=== PATIENT | female | born 1965 | race African-American/Black ===

== ENCOUNTER 2023-04-22 15:52 | Emergency (ER) | payer OTHER ==
[2023-04-22 16:02] VITALS: BP 143/80; PULSE 102; RESP 17; TEMP 98.2; BMI 25.0
[2023-04-22] MEDS ORDERED: DIPHTH,PERTUSS(ACELL),TET 0.5 ML DISP.SYRIN IM ONE (17:12)
== END 2023-04-22 19:02 | disposition left against medical advice (07) ==
LOC: JERFT 15:52
DX: S41.111A Laceration without foreign body of right upper arm, initial encounter (principal); S41.112A Laceration without foreign body of left upper arm, initial encounter; S50.812A Abrasion of left forearm, initial encounter; S50.811A Abrasion of right forearm, initial encounter; Y04.8XXA Assault by other bodily force, initial encounter
CPT/HCPCS: 99282-25

== ENCOUNTER 2023-05-19 08:42 | Inpatient (IN) | payer OTHER ==
[2023-05-19 09:19] VITALS: BMI 22.6
[2023-05-19] MEDS ORDERED: POLYETHYLENE GLYCOL (HEALTHYLAX) 3350 17 GM PACKET PO PRN (09:46)
[2023-05-19] MEDS ORDERED: BENZOCAINE/MENTHOL (CHLORASEPTIC ) LOZENGE MM PRN (09:46)
[2023-05-19] MEDS ORDERED: METHOCARBAMOL 500 MG TABLET PO PRN (09:46)
[2023-05-19] MEDS ORDERED: guaiFENesin 600 MG TABLET.ER (FP) PO PRN (09:46)
[2023-05-19] MEDS ORDERED: chlordiazePOXIDE HCL 25 MG CAPSULE PO PRN (09:46)
[2023-05-19] MEDS ORDERED: NALOXONE HCL 0.4 MG/ML VIAL IM PRN (09:46)
[2023-05-19] MEDS ORDERED: BENZONATATE 200 MG CAPSULE PO PRN (09:46)
[2023-05-19] MEDS ORDERED: MAG HYDROX/AL HYDROX/SIMETH 30 ML UNIT-DOSE CUP PO PRN (09:46)
[2023-05-19] MEDS ORDERED: DICYCLOMINE HCL 10 MG CAPSULE PO PRN (09:46)
[2023-05-19] MEDS ORDERED: ONDANSETRON *ODT* 4 MG TABLET SL PRN (09:46)
[2023-05-19] MEDS ORDERED: IBUPROFEN 600 MG TABLET (FP) PO PRN (09:46)
[2023-05-19] MEDS ORDERED: NALOXONE HCL (KLOXXADO) 8 MG SPRAY NS PRN (09:46)
[2023-05-19] MEDS ORDERED: hydrOXYzine PAMOATE 25 MG CAPSULE (FP) PO PRN (09:46)
[2023-05-19] MEDS ORDERED: MAGNESIUM HYDROX 2400MG/30ML ORAL SUSPENSION 30 ML CUP PO PRN (09:46)
[2023-05-19] MEDS ORDERED: IBUPROFEN 400 MG TABLET (FP) PO PRN (09:46)
[2023-05-19] MEDS ORDERED: LOPERAMIDE HCL 2 MG CAPSULE PO PRN (09:46)
[2023-05-19] MEDS ORDERED: BISMUTH SUBSALICYLATE 262 MG/15 ML BTL PO PRN (09:46)
[2023-05-19] MEDS ORDERED: ACETAMINOPHEN 325 MG TABLET (FP) PO PRN (09:46)
[2023-05-19] MEDS: PRENATAL VITAMINS W/ FOLIC ACID TABLET (FP) PO SCH (10:01)
[2023-05-19] MEDS: chlordiazePOXIDE HCL 25 MG CAPSULE PO SCH ×3 (10:02→22:41)
[2023-05-19] MEDS ORDERED: cloNIDine HCL 0.1 MG TABLET PO ONE (10:23)
[2023-05-19] MEDS ORDERED: chlordiazePOXIDE HCL 25 MG CAPSULE ONE (10:29)
[2023-05-19] MEDS ORDERED: PRENATAL VITAMINS W/ FOLIC ACID TABLET (FP) PO ONE (10:29)
[2023-05-19] MEDS ORDERED: cloNIDine HCL 0.1 MG TABLET ONE (10:29)
[2023-05-19] MEDS: ALBUTEROL SO4 HFA INHALER IH PRN (19:13)
[2023-05-19] MEDS: THIAMINE HCL 100 MG TABLET (FP) PO SCH (22:40)
[2023-05-19] MEDS: MELATONIN 5 MG TABLETS PO SCH (22:40)
[2023-05-20] MEDS: chlordiazePOXIDE HCL 25 MG CAPSULE PO SCH ×4 (05:30→23:07)
[2023-05-20] MEDS: PRENATAL VITAMINS W/ FOLIC ACID TABLET (FP) PO SCH (10:46)
[2023-05-20] MEDS: ALBUTEROL SO4 HFA INHALER IH PRN (19:39)
[2023-05-20] MEDS: THIAMINE HCL 100 MG TABLET (FP) PO SCH (22:48)
[2023-05-20] MEDS: MELATONIN 5 MG TABLETS PO SCH (22:48)
[2023-05-20 23:19] VITALS: RESP 17
[2023-05-21] MEDS: chlordiazePOXIDE HCL 25 MG CAPSULE PO SCH ×2 (05:50→09:59)
[2023-05-21 06:03] VITALS: BP 187/87; PULSE 93; TEMP 97.6
[2023-05-21] MEDS: ALBUTEROL SO4 HFA INHALER IH PRN (08:33)
[2023-05-21] MEDS: PRENATAL VITAMINS W/ FOLIC ACID TABLET (FP) PO SCH (09:35)
[2023-05-21] MEDS ORDERED: ESCITALOPRAM OXALATE 10 MG TABLET PO SCH (10:00)
[2023-05-21] MEDS ORDERED: amLODIPine BESYLATE 5 MG TABLET (FP) PO SCH (10:00)
[2023-05-21] MEDS ORDERED: HYDROCHLOROTHIAZIDE 25 MG TABLET (FP) PO SCH (10:00)
[2023-05-22] MEDS ORDERED: chlordiazePOXIDE HCL 10 MG CAPSULE PO PRN
[2023-05-22] MEDS ORDERED: chlordiazePOXIDE HCL 10 MG CAPSULE PO SCH (05:00)
[2023-05-23] MEDS ORDERED: chlordiazePOXIDE HCL 10 MG CAPSULE PO SCH (05:00)
[2023-05-24] MEDS ORDERED: chlordiazePOXIDE HCL 10 MG CAPSULE PO ONE (05:00)
== END 2023-05-21 14:00 | disposition left against medical advice (07) | DRG 770 ==
LOC: YASAS 08:42 → Y3N 10:12 → Y6N 05-20 22:35
PROVIDERS: ADMIT Allergy & Immunology; ATTEND Surgery
PROC: HZ2ZZZZ Detoxification Services for Substance Abuse Treatment (ICD-10-PCS; principal; 2023-05-19)
DX: F10.230 Alcohol dependence with withdrawal, uncomplicated (principal); F12.20 Cannabis dependence, uncomplicated; F17.210 Nicotine dependence, cigarettes, uncomplicated; F19.24 Other psychoactive substance dependence with psychoactive substance-induced mood disorder; F43.10 Post-traumatic stress disorder, unspecified; F32.A Depression, unspecified; F41.9 Anxiety disorder, unspecified; I10 Essential (primary) hypertension; J45.909 Unspecified asthma, uncomplicated; J44.9 Chronic obstructive pulmonary disease, unspecified; E11.9 Type 2 diabetes mellitus without complications; Z86.11 Personal history of tuberculosis
CPT/HCPCS: 71046-TC-FY; 87635; 93005; 93010

== ENCOUNTER 2023-05-21 10:10 | Emergency (ER) | payer OTHER ==
[2023-05-21] MEDS ORDERED: methylPREDNISolone NA SUCC 125 MG/2 ML VIAL IVPUSH ONE (10:35)
[2023-05-21 10:42] VITALS: BP 195/80; PULSE 91; RESP 20; TEMP 98.9; BMI 25.7
[2023-05-21] MEDS ORDERED: ALBUTEROL SO4 2.5/IPRATROPIUM 0.5 INH SOL 3 ML VIAL.NEB. NEB ONE ×2 (10:47→11:27)
[2023-05-21] MEDS ORDERED: methylPREDNISolone NA SUCC 125 MG/2 ML VIAL ONE (10:47)
[2023-05-21] MEDS: ALBUTEROL SO4 2.5/IPRATROPIUM 0.5 INH SOL 3 ML VIAL.NEB. NEB SCH ×3 (10:50→12:38)
[2023-05-21] MEDS ORDERED: AMOX TR/POT CLAV 875MG/125MG TABLETS (FP) PO ONE (12:02)
[2023-05-21 12:46] LABS: POTASSIUM 3.7 mmol/L (3.5-5.1)
[2023-05-21 12:48] LABS: CALCIUM 9.5 mg/dL (8.5-10.1); MAGNESIUM 2.3 mg/dL (1.8-2.4)
[2023-05-21 12:49] LABS: ALBUMIN 3.4 g/dl (3.4-5.0)
[2023-05-21 12:51] LABS: PHOSPHOROUS 2.5 mg/dL (2.5-4.9)
[2023-05-21 12:52] LABS: CREATININE 0.9 mg/dL (0.55-1.3)
[2023-05-21 12:53] LABS: BILIRUBIN,TOTAL 0.7 mg/dL (0.2-1); TOT PROT 7.6 g/dl (6.4-8.2)
[2023-05-21 12:57] LABS: N-TERMINAL BNP 647.7 pg/ml (5-125)
[2023-05-21 13:11] LABS: BASO % 0.7 % (0-2.0); EOS % 1.8 % (0-4.5); HEMATOCRIT 37.1 % (32.4-45.2); HEMOGLOBIN 10.9 GM/dL (10.7-15.3); LYMPH % 21.2 % (8-40); MCH 21.6 pg (25.7-33.7); MCHC 29.5 g/dl (32.0-36.0); MEAN CELL VOLUME 73.2 fl (80-96); MEAN PLT VOLUME 9.1 fl (7.5-11.1); MONO % 6.1 % (3.8-10.2); NEUT % 70.2 % (42.8-82.8); PLATELET COUNT 351 10^3/uL (134-434); RBC 5.07 M/mm3 (3.60-5.2); RDW 20.6 % (11.6-15.6); WHITE BLOOD COUNT 6.1 K/mm3 (4.0-10.0)
[2023-05-21 13:49] LABS: ANISOCYTOSIS 1+; MACROCYTOSIS 0
[2023-05-21 14:05] LABS: HIV INTERPRETATION NEGATIVE (NEGATIVE)
== END 2023-05-21 12:50 | disposition left against medical advice (07) ==
LOC: JER 10:10
DX: R06.02 Shortness of breath (principal); R05.9 Cough, unspecified; R09.3 Abnormal sputum; R53.1 Weakness
CPT/HCPCS: 36415; 80053; 82550; 83735; 83880; 84100; 84443; 84484; 85025; 87389; 93005; 93010; 99284-25